=== PATIENT | male | born 1990 | race African-American/Black ===

== ENCOUNTER 2024-03-04 13:10 | Emergency (ER) | payer MEDICARE, MEDICAID ==
[~2024-03-04] VITALS: Ht 162.6 cm; Wt 55.0 kg
[2024-03-04 13:12] VITALS: O2SAT 95
[2024-03-04] MEDS: LORAZEPAM 2MG/ML INJ IV ONE (14:04)
[2024-03-04] MEDS: SODIUM CHLORIDE 0.9% 1,000 ML IV ONE (14:05)
[2024-03-04 14:13] LABS: BASOPHILS % 1.1 % (0.0-2.0); EOSINOPHILS % 3.1 % (0.0-5.0); HEMATOCRIT. 47.2 % (42.0-52.0); HEMOGLOBIN. 15.6 g/dL (14.0-18.0); LYMPHOCYTES % 39.5 % (20.0-50.0); MEAN CORPUSCULAR HEMOGLOBIN 29.7 pg (28.0-32.0); MEAN CORPUSCULAR HGB CONC 33.1 g/dL (31.0-37.0); MEAN CORPUSCULAR VOLUME 89.6 fL (80.0-94.0); MEAN PLATELET VOLUME 9.9 fl (7.4-10.4); MONOCYTES % 6.6 % (2.0-8.0); NEUTROPHILS % 49.7 % (40.0-76.0); PLATELET 202 x1000/uL (130-400); RED BLOOD CELL COUNT 5.27 mill/uL (4.7-6.1); RED CELL DISTRIBUTION WIDTH 13.8 % (11.6-14.6); WHITE BLOOD COUNT 6.5 x1000/uL (4.5-11.0)
[2024-03-04 14:14] LABS: CHLORIDE 102 mEq/L (98-107); POTASSIUM 4.2 mEq/L (3.5-5.1); SODIUM 136 mEq/L (136-145)
[2024-03-04 14:15] LABS: CALCIUM 9.5 mg/dL (8.7-10.4); CARBON DIOXIDE 29 mEq/L (21-32)
[2024-03-04 14:20] LABS: CREATININE 1.1 mg/dL (0.6-1.3); GLUCOSE 70 mg/dL (70-105); UREA NITROGEN BLOOD 10 mg/dL (9-23)
[2024-03-04 14:22] LABS: ALANINE AMINOTRANSFERASE 28 IU/L (10-49); ALBUMIN 4.8 g/dL (3.2-4.8); ASPARTATE AMINOTRANSFERASE 26 IU/L (<34); BILIRUBIN TOTAL 0.4 mg/dL (0.1-1.0)
[2024-03-04 14:23] LABS: PROTEIN TOTAL 9.1 g/dL (6.0-8.3)
[2024-03-04 14:26] LABS: TROPONIN I HIGH SENSITIVITY < 4 ng/L (3.0-53)
[2024-03-04 15:53] LABS: TROPONIN I HIGH SENSITIVITY < 4 ng/L (3.0-53)
[2024-03-04] MEDS: LEVETIRACETAM 500MG PREMIX 100 ML IV ONE (17:29)
[2024-03-04 19:44] VITALS: TEMP 98.6
[2024-03-04] MEDS ORDERED: KEPP500 MT (20:03)
[2024-03-04 20:31] VITALS: BP 129/85; PULSE 94; RESP 15
== END 2024-03-04 20:31 | disposition home or self-care (01) ==
LOC: ER 13:10
DX: R56.9 Unspecified convulsions (principal); J45.909 Unspecified asthma, uncomplicated
CPT/HCPCS: 99284; 96365; 71045; 96361; 96375; 80053; 83880; 83605; 85025; 84484; 36415; 93005; 82542; J1953; J2060; J7030

== ENCOUNTER 2024-03-20 11:57 | Emergency (ER) | payer MEDICARE, MEDICAID ==
[~2024-03-20] VITALS: Ht 177.8 cm; Wt 79.0 kg
[~2024-03-20 11:57] MED LIST: KEPP500 MT
[2024-03-20 11:58] VITALS: TEMP 98.3; O2SAT 99
[2024-03-20 12:37] LABS: BASOPHILS % 0.6 % (0.0-2.0); EOSINOPHILS % 5.6 % (0.0-5.0); HEMATOCRIT. 43.4 % (42.0-52.0); HEMOGLOBIN. 14.6 g/dL (14.0-18.0); LYMPHOCYTES % 37.7 % (20.0-50.0); MEAN CORPUSCULAR HEMOGLOBIN 29.8 pg (28.0-32.0); MEAN CORPUSCULAR HGB CONC 33.7 g/dL (31.0-37.0); MEAN CORPUSCULAR VOLUME 88.5 fL (80.0-94.0); MEAN PLATELET VOLUME 9.7 fl (7.4-10.4); MONOCYTES % 8.7 % (2.0-8.0); NEUTROPHILS % 47.4 % (40.0-76.0); PLATELET 181 x1000/uL (130-400); RED BLOOD CELL COUNT 4.91 mill/uL (4.7-6.1); RED CELL DISTRIBUTION WIDTH 13.8 % (11.6-14.6); WHITE BLOOD COUNT 5.4 x1000/uL (4.5-11.0)
[2024-03-20] MEDS: LEVETIRACETAM 1000MG PREMIX 100 ML IV ONE (12:38)
[2024-03-20 12:46] LABS: CHLORIDE 101 mEq/L (98-107); POTASSIUM 3.9 mEq/L (3.5-5.1); SODIUM 135 mEq/L (136-145)
[2024-03-20 12:47] LABS: CALCIUM 9.8 mg/dL (8.7-10.4); CARBON DIOXIDE 29 mEq/L (21-32)
[2024-03-20 12:52] LABS: CREATININE 1.1 mg/dL (0.6-1.3); GLUCOSE 93 mg/dL (70-105); UREA NITROGEN BLOOD 7 mg/dL (9-23)
[2024-03-20 12:53] LABS: VALPROIC ACID 80.4 ug/mL (50-100)
[2024-03-20] MEDS: VALPROATE SODIUM 1,000 MG in DEXT 5% WATER 100 ML IV ONE (12:59)
[2024-03-20 15:30] LABS: ETHANOL BLOOD < 10 mg/dL (<10)
[2024-03-20 16:51] VITALS: BP 132/84; PULSE 89; RESP 19
== END 2024-03-20 16:52 | disposition home or self-care (01) ==
LOC: ER 12:50
DX: R56.9 Unspecified convulsions (principal); J45.909 Unspecified asthma, uncomplicated
CPT/HCPCS: 80048; 80320; 80165; 85025; 36415; 96367; 96365; 99284; J1953; J3490; J7060; G0480

== ENCOUNTER 2024-06-24 10:05 | Emergency (ER) | payer MEDICARE, MEDICAID ==
[~2024-06-24] VITALS: Ht 175.3 cm; Wt 75.0 kg
[2024-06-24 10:08] VITALS: O2SAT 98
[2024-06-24] MEDS: LEVETIRACETAM 500MG PREMIX 100 ML IV ONE (10:32)
[2024-06-24 10:33] VITALS: TEMP 98.4
[2024-06-24 10:42] LABS: BASOPHILS % 0.6 % (0.0-2.0); EOSINOPHILS % 4.4 % (0.0-5.0); HEMATOCRIT. 45.4 % (42.0-52.0); HEMOGLOBIN. 14.6 g/dL (14.0-18.0); LYMPHOCYTES % 50.5 % (20.0-50.0); MEAN CORPUSCULAR HEMOGLOBIN 28.7 pg (28.0-32.0); MEAN CORPUSCULAR HGB CONC 32.1 g/dL (31.0-37.0); MEAN CORPUSCULAR VOLUME 89.7 fL (80.0-94.0); MEAN PLATELET VOLUME 9.5 fl (7.4-10.4); MONOCYTES % 8.2 % (2.0-8.0); NEUTROPHILS % 36.3 % (40.0-76.0); PLATELET 154 x1000/uL (130-400); RED BLOOD CELL COUNT 5.07 mill/uL (4.7-6.1); RED CELL DISTRIBUTION WIDTH 14.4 % (11.6-14.6); WHITE BLOOD COUNT 4.8 x1000/uL (4.5-11.0)
[2024-06-24 10:47] LABS: CHLORIDE 104 mEq/L (98-107); POTASSIUM 4.1 mEq/L (3.5-5.1); SODIUM 137 mEq/L (136-145)
[2024-06-24 10:48] LABS: CARBON DIOXIDE 29 mEq/L (21-32)
[2024-06-24 10:49] LABS: CALCIUM 9.4 mg/dL (8.7-10.4)
[2024-06-24 10:53] LABS: CREATININE 1.1 mg/dL (0.6-1.3); GLUCOSE 71 mg/dL (70-105)
[2024-06-24 10:54] LABS: UREA NITROGEN BLOOD 8 mg/dL (9-23)
[2024-06-24 14:00] VITALS: BP 124/80; PULSE 67; RESP 12
== END 2024-06-24 14:39 | disposition home or self-care (01) ==
LOC: ER 10:05
DX: G40.909 Epilepsy, unspecified, not intractable, without status epilepticus (principal); J45.909 Unspecified asthma, uncomplicated; Z88.0 Allergy status to penicillin
CPT/HCPCS: 99284; 96365; 80048; 85025; 36415; J1953